=== PATIENT | male | born 1985 | race Caucasian/White ===

== ENCOUNTER 2018-12-29 19:34 | Emergency (ER) | payer OTHER ==
[~2018-12-29] VITALS: Ht 165.1 cm; Wt 63.5 kg
--- OUTSIDE RECORDS SUMMARY | ~2018-12-29 | XMS | Clinical Summary ---
Demographics + + + | Address | [address] | | | [place] [address] | + + + | Home Phone | | + + + | Preferred Language | Unknown | + + + | Marital Status | Unknown | + + + | Muslim Affiliation | Unknown | + + + | Race | Unknown | + + + | Ethnic Group | Unknown | + + + Author + + + | Author | [facility] | | [facility] | + + + | Organization | [facility] | | | and [facility] | + + + | Address | Unknown | + + + | Phone | Unavailable | + + + Care Team Providers + +------+ + | Care Public Health Worker Name | Role | Phone | + +------+ + PCP | Unavailable | + +------+ + Allergies Not on File Medications Not on file Active Problems Not on file Social History + +-------+ +--------+------+ | Tobacco Use | Types | Packs/Day | Years | Date | | | | | Used | | + +-------+ +--------+------+ | Never Assessed | | | | | + +-------+ +--------+------+ + + + | Sex Assigned at | Date Recorded | | | | + + + | Not on file | | + + + + + + + | Job Start Date | Occupation | Industry | + + + + | Not on file | Not on file | Not on file | + + + + + + + + | Travel History | Travel Start | Travel End | + + + + + + | No recent travel history available. | + + Last Filed Vital Signs Not on file Plan of Treatment +--------+---------+ + + + | Date | Type | Specialty | Care Team | Description | +--------+---------+ + + + | 01/20/ | Office | Dermatology | Amalia Beyer | | | 2019 | Visit | | [address] | | | | | | [address] | | | | | | [place] [address] | | | | | | [phone] | | | | | | | | +--------+---------+ + + + + + + + + | Health Maintenance | Due Date | Last Done | Comments | + + + + + | Vaccine: | | | | | Dtap/Tdap/Td (1 - | 3 | | | | Tdap) | | | | + + + + + | Vaccine: Influenza | | | | | (#1) | 9 | | | + + + + + Results Not on filefrom Last 3 Months Insurance + +--------+ +--------+ +---------+--------+ | Payer | Benefi | Subscriber | Effect | Phone | Address | Type | | | t Plan | ID | adela | | | | | | / | | Dates | | | | | | Group | | | | | | + +--------+ +--------+ +---------+--------+ | [employer] | MODA | [id number] | | [phone] | | Medica | | MEDICAID HMO | HEALTH | | [id number] | 1 | | id | | | MDCD | | esent | | | | | | [place] | | | | | | + +--------+ +--------+ +---------+--------+ + +--------+ +--------+ + + | Guarantor Name | Accoun | Relation to | Date | Phone | Billing Address | | | t Type | Patient | of | | | | | | | | | | + +--------+ +--------+ + + | Bin Morse | Person | Self [birth year] | [address] | | | al/Kris | | 1985 | [phone] | [place] [address] | | | henrry | | | 4 (Home) | | + +--------+ +--------+ + + Advance Directives Patient has advance care planning documents on file. For more information, please contact:[facility] [place] [address]"
--- OUTSIDE RECORDS SUMMARY | ~2018-12-29 | XMS | Encounter Summary ---
Demographics + + + | Address | [address] | | | [place] [address] | + + + | Home Phone | | + + + | Preferred Language | Unknown | + + + | Marital Status | Single | + + + | Anglican Affiliation | Unknown | + + + | Race | White | + + + | Ethnic Group | Not or | + + + Author + + + | Author | [facility] | + + + | Organization | [facility] | + + + | Address | Unknown | + + + | Phone | Unavailable | + + + Care Team Providers + +------+ + | Care Night Clerk Name | Role | Phone | + +------+ + PCP | Unavailable | + +------+ + Encounter Details +--------+ + + + + | Date | Type | Department | Care Team | Description | +--------+ + + + + | 02/21/ | Document-Sc | Dermatology at | [facility], | | | 2018 | annblane | [facility] | ,PhD 1935 | | | | | [address] | [address] [place], [place] | | | | | [place], [place] | [address] | | | | | [address] | [phone] | | | | | [phone] | | | +--------+ + + + + Social History + +-------+ +--------+------+ | Tobacco [...] recent travel history available. | + + documented as of this encounter Plan of Treatment Not on filedocumented as of this encounter Visit Diagnoses Not on filedocumented in this encounter"
--- OUTSIDE RECORDS SUMMARY | ~2018-12-29 | XMS | Clinical Summary ---
Demographics + + + | Address | [address] | | | [place] [address] | + + + | Home Phone | | + + + | Preferred Language | Unknown | + + + | Marital Status | Single | + + + | Baptist Affiliation | Unknown | + + + | Race | White | + + + | Ethnic Group | Not or | + + + Author + + + | Author | [facility] | + + + | Organization | [facility] | + + + | Address | Unknown | + + + | Phone | Unavailable | + + + Care Team Providers + +------+ + | Care Christian Science Nurse Name | Role | Phone | + +------+ + PCP | Unavailable | + +------+ + Source Comments NIKUNJ is fully live on both [facility] and [facility]Patient.[facility] Allergies Not on File Medications Not on [...] Signs Not on file Plan of Treatment + + + + + | Health Maintenance | Due Date | Last Done | Comments | + + + + + | Influenza (Flu) | | | | | vaccination (#1) | 9 | | | + + + + + | Pneumococcal | Aged Out | | No longer eligible | | vaccination | | | based on patient's | | | | | age to complete this | | | | | topic | + + + + + Results Not on filefrom Last 3 Months Insurance + +--------+ +--------+-------+---------+--------+ | Payer | Benefi | Subscriber | Effect | Phone | Address | Type | | | t Plan | ID | adela | | | | | | / | | Dates | | | | | | Group | | | | | | + +--------+ +--------+-------+---------+--------+ | [employer]ICAID | [employer] | xxxxxxxx | Effect | | | Medica | | | [place] | | adela | | | id | | | [place] | | for | | | | | | | | all | | | | | | | | dates | | | | + +--------+ +--------+-------+---------+--------+ + +--------+ +--------+ + + | Guarantor Name | Accoun | Relation to | Date | Phone | Billing Address | | | t Type | Patient | of | | | | | | | | | | + +--------+ +--------+ + + | INEZ MORSE | Person | Parent | | | [address] | | | al/Fam | | | [phone] | [place] [address] | | | henrry | | | 8 (Home) | | + +--------+ +--------+ + + | Bin Morse | Person | Self | [birth year] | [address] | | | al/Fam | | 1984 | [phone] | [place] [address] | | | henrry | | | 9 (Home) | | + +--------+ +--------+ + + | iBn Morse | Third | Self | [birth year] | | [address] | | | [employer] | | 1984 | [phone] | [place] [address] | | | Liabil | | | 9 (Home) | | | | ity | | | | | + +--------+ +--------+ + +"
--- OUTSIDE RECORDS SUMMARY | ~2018-12-29 | XMS | Clinical Summary ---
Demographics + + + | Address | [address] | | | [place] [address] | + + + | Home Phone | | + + + | Preferred Language | Unknown | + + + | Marital Status | Unknown | + + + | Episcopalian Affiliation | Unknown | + + + | Race | Unknown | + + + | Ethnic Group | Unknown | + + + Author + + + | Author | [facility] | | | and [facility] | + + + | Organization | [facility] | | | and [facility] | + + + | Address | Unknown | + + + | Phone | Unavailable | + + + Care Team Providers + +------+ + | Care Mushroom Cutter Name | Role | Phone | + [...] [address] | | | | | | [place] [address] | | | | | | [phone] | | | | | | | [...] | [employer] | MODA | [id number] | | [phone] | | Medica | [...] | | al/Kris | | 1985 | [phone] | [place] [address] | | | henrry | | | 4 (Home) | | + +--------+ +--------+ + + Advance Directives Patient has advance care planning documents on file. For more information, please contact:[facility] [place] [address]"
--- OUTSIDE RECORDS SUMMARY | ~2018-12-29 | XMS | Encounter Summary ---
Demographics + + + | Address | [address] | | | [place] [address] | + + + | Home Phone | | + + + | Preferred Language | Unknown | + + + | Marital Status | Single | + + + | Adventist Affiliation | Unknown | + + + | Race | White | + + + | Ethnic Group | Not or | + + + Author + + + | Author | [facility] | + + + | Organization | [facility] | + + + | Address | Unknown | + + + | Phone | Unavailable | + + + Care Team Providers + +------+ + | Care Clearance Representative Name | Role | Phone | + +------+ + PCP | Unavailable | + +------+ + Encounter Details +--------+ + + + + | Date | Type | Department | Care Team | Description | +--------+ + + + + | 02/21/ | Document-Sc | Dermatology at | [facility], | | | 2018 | annblane | [facility] | ,PhD 1935 | | | | | Clinic [address] | [address] [place], [place] | | | | | [place], [place] | [address] | | | | | [address] | [phone] | | | | | [phone] | | | +--------+ + + + [...]
--- OUTSIDE RECORDS SUMMARY | ~2018-12-29 | XMS | Clinical Summary ---
Demographics + + + | Address | [address] | | | [place] [address] | + + + | Home Phone | | + + + | Preferred Language | Unknown | + + + | Marital Status | Single | + + + | Pentecostal Affiliation | Unknown | + + + | Race | White | + + + | Ethnic Group | Not or | + + + Author + + + | Author | [facility] | + + + | Organization | [facility] | + + + | Address | Unknown | + + + | Phone | Unavailable | + + + Care Team Providers + +------+ + | Care Traffic Administrator Name | Role | Phone | + +------+ + PCP | Unavailable | + +------+ + Source Comments NIKUNJ is fully live on both [facility] and [facility] InPatient.[facility] Allergies Not on File Medications Not on [...] | | | + +--------+ +--------+-------+---------+--------+ | SPECIAL TAX AUDITOR MEDICAID | SPECIAL TAX AUDITOR | xxxxxxxx | Effect | | | [...] | | | [phone] | [place] [address] | | | henrry | | | 8 (Home) | | + +--------+ +--------+ + + | Bin Morse | Person | Self | [birth year] | [address] | | | al/Fam | | 1984 | [phone] | [place] [address] | | | henrry | | | 9 (Home) | | + +--------+ +--------+ + + | Bin Morse | Third | Self | [birth year] | | [address] | | | [employer] | | 1984 | [phone] | [place] [address] | | | Liabil | | | 9 (Home) | | | | ity | | | | | + +--------+ +--------+ + +"
[~2018-12-29 19:34] MED LIST: ACETAMINOPHEN325 M1 PO; ALLERGY RELIEF10 M1 PO; BENZONATATE200 MG PO; CEROVITE JR1 EACH PO; CLARITIN5 MG/5 ML PO; CLOBETASOL PROP15 GM TOP; DESONIDE15 G1 TOP; FLUOCINOLON118.28 M1 TOP; IBUPROFEN400 MG PO; ZOFRAN ODT8 MG PO
== END 2018-12-29 20:40 | disposition home or self-care (01) ==
LOC: ED 19:34
DX: R10.9 Unspecified abdominal pain (principal); Z79.899 Other long term (current) drug therapy
CPT/HCPCS: 80053; 81001; 83690; 85025; 99284

== ENCOUNTER 2023-03-22 09:00 | Emergency (ER) | payer MEDICARE, OTHER ==
[~2023-03-22] VITALS: Ht 165.1 cm; Wt 63.5 kg
[~2023-03-22 09:00] MED LIST changes: +CALCIPOTRIENE60 G1 TOP; +CEROVITE SENIO1 EACH PO; +FISH OIL 1,0001 EAC7 PO; +ROBAFEN100 MG/5 M PO; +TRIAMCINOLONE A15 G1 TOP; +TRIPLE ANTIBI28.4 G3 TP
[2023-03-22 09:31] LABS: BASOPHILS 0.8 % (0-2); EOSINOPHILS 0.1 % (0-6); HEMATOCRIT 45.2 % (35.0-50.0); HEMOGLOBIN 15.7 g/dL (12.0-18.0); LYMPHOCYTES 16.5 % (24-44); MCH 32.9 (27-36); MCHC 34.7 g/dl (30-36); MCV 94.7 fl (81-99); MONOCYTES 12.2 % (0-12); NEUTROPHILS 70.4 % (39-80); PLATELET COUNT 234 K/uL (140-440); RBC 4.77 M/ul (4.3-5.7); RDW 13.4 (10.5-15.0)
[2023-03-22 09:46] LABS: ALBUMIN 3.1 g/dL (3.4-5.0); ALBUMIN/GLOBULIN RATIO 0.69 (1.1-2.4); ANION GAP 19.8 (7-21); BILIRUBIN, TOTAL 0.5 ng/dL (0.2-1.0); BUN/CREATININE RATIO 17.08 (6.0-28.6); CALCIUM 8.5 mg/dL (8.5-10.1); CREATININE, SERUM 1.58 mg/dL (0.70-1.30); POTASSIUM 3.8 mmol/L (3.5-5.1); PROTEIN, TOTAL 7.6 g/dL (6.4-8.2)
[2023-03-22 10:36] LABS: INFLUENZA B NAA NEGATIVE (NEGATIVE); RESPIRATORY SYNCYTIAL VIR NAA NEGATIVE (NEGATIVE)
[2023-03-22] MEDS ORDERED: PAXLOVID 150-11 EAC1 PO (10:53)
[2023-03-22 11:07] VITALS: BP 111/56
== END 2023-03-22 11:09 | disposition home or self-care (01) ==
LOC: ED 09:00
PROVIDERS: Emergency Medicine
DX: U07.1 COVID-19 (principal)
CPT/HCPCS: 36415; 80053; 85025; 87502; J7040; U0002